=== PATIENT | male | born 1965 | race Caucasian/White ===

== ENCOUNTER 2025-08-26 10:04 | Outpatient (CLI) | payer BC, SELFPAY ==
--- NOTE | 2025-08-26 10:45 | CRLHL7_ITS ---
For Patients: As a result of the Century Cures Act, medical imaging exams and procedure reports are released immediately into your electronic medical record. You may view this report before your referring provider. If you have questions, please contact your health care provider. CLINICAL HISTORY: Right testicular nodule TECHNIQUE: Luo scale imaging was performed of the scrotum. In addition color Doppler and spectral Doppler analysis was performed of the testes. FINDINGS: The testes demonstrate normal arterial and venous blood flow on color Doppler and spectral Doppler analysis. The testes have uniform echogenicity with no evidence of a suspicious mass or area of inflammation. The right testis measures 5.1 x 2.4 x 2.8 centimeters in size and the left testis measures 4.2 x 2.3 x 2.8 centimeters . There is a hypoechoic lesion measuring 0.5 x 0.4 x 0.4 centimeters long me peripheral right testis could be related to a tunica albuginea cyst there is no blood flow seen this is suboptimally visualized. The epididymis appears normal bilaterally. There is no evidence of a hydrocele or varicocele. IMPRESSION: 1. 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 Dictated by Phoebe Jorge MD @ 08/29/2025 1:57:42 PM (Electronically Signed)
== END 2025-08-26 10:05 | disposition home or self-care (01) ==
PROVIDERS: PCP Family Medicine; Visit Provider Family Medicine
DX: N50.89 Other specified disorders of the male genital organs (principal)
CPT/HCPCS: 76870; 93976